=== PATIENT | male | born 1955 | race Caucasian/White ===

== ENCOUNTER → 2017-07-20 | Outpatient (CLI) | payer BC ==
[2017-07-20 12:17] LABS: BASO % 0.3 %; BASO ABS # 0.02 K/uL (0-0.2); EOS % 1.5 %; HEMATOCRIT 45.4 % (42-52); HEMOGLOBIN 16.4 g/dL (14.0-18.0); IG# 0.01 K/uL (0.00-0.02); LYMPH % 38.7 %; LYMPH ABS # 2.56 K/uL (1.2-3.4); MEAN CELL VOLUME 98.7 fL (80-100); MEAN CORPUSCULAR HEMOGLOBIN 35.7 pg (25-34); MEAN CORPUSCULAR HGB CONC 36.1 g/dl (32-36); MEAN PLATELET VOLUME 12.2 fL (7.4-10.4); MONO % 7.3 %; MONO ABS # 0.48 K/uL (0.11-0.59); NEUT ABS # 3.45 K/uL (1.4-6.5); PLATELET COUNT 181 K/uL (130-400); RED CELL DISTRIBUTION WIDTH CV 12.3 % (11.5-14.5); WHITE BLOOD COUNT 6.62 K/uL (4.8-10.8)
[2017-07-20 13:58] LABS: ALT/SGPT 52 U/L (12-78); BLOOD UREA NITROGEN 20 mg/dl (7-18); CARBON DIOXIDE 29 mmol/L (21-32); CHOLESTEROL 164 mg/dl (0-200); CREATININE 0.96 mg/dl (0.60-1.40); GLUCOSE 97 mg/dl (70-99); POTASSIUM 3.9 mmol/L (3.5-5.1); SODIUM 138 mmol/L (136-145)
[2017-07-20 14:00] LABS: ALKALINE PHOSPHATASE 49 U/L (45-117); AST/SGOT 30 U/L (15-37); LDL CHOLESTEROL CALCULATED 91 mg/dl
== END | disposition home or self-care (01) ==
LOC: C.LABMFLN 08:53
PROVIDERS: ATTEND Family Medicine
DX: Z00.00 Encounter for general adult medical examination without abnormal findings (principal)

== ENCOUNTER → 2017-12-12 | Outpatient (CLI) | payer BC ==
[2017-12-12 14:02] LABS: ALBUMIN 4.3 gm/dl (3.4-5.0); ALKALINE PHOSPHATASE 49 U/L (45-117); ALT/SGPT 47 U/L (12-78); AST/SGOT 30 U/L (15-37); BLOOD UREA NITROGEN 20 mg/dl (7-18); CALCIUM 9.3 mg/dl (8.5-10.1); CARBON DIOXIDE 26 mmol/L (21-32); CREATININE 1.01 mg/dl (0.60-1.40); GLUCOSE 106 mg/dl (70-99); POTASSIUM 3.9 mmol/L (3.5-5.1); SODIUM 139 mmol/L (136-145); TOTAL PROTEIN 7.1 gm/dl (6.4-8.2)
== END | disposition home or self-care (01) ==
LOC: C.LABMFLN 09:56
PROVIDERS: ATTEND Family Medicine
DX: R79.89 Other specified abnormal findings of blood chemistry (principal)

== ENCOUNTER 2024-03-19 10:11 | Observation (INO) ==
--- NOTE | 2024-02-21 09:39 | PAT Medication Instructions ---
Medication Instructions Date of Service February 21, 2024 Home Medications Medication Instructions Recorded albuterol sulfate 90 mcg/actuation 2 puff inhalation Q6H PRN 06/21/22 aerosol inhaler bronchospasm #18 grams fluticasone propionate 50 2 spray intranasal DAILY PRN 10/12/22 mcg/actuation nasal allergy symptoms #17 mL spray,suspension ipratropium bromide 21 mcg (0.03 2 spray intranasal BID #30 mL 04/25/ %) nasal spray omega 4-yin-aqd-fish oil 1,200 mg (144 mg-216 mg) capsule (Fish Oil) 1 cap PO BID albuterol sulfate 90 mcg/actuation aerosol inhaler 2 puff inhalation Q6H PRN fluticasone propionate 50 mcg/actuation nasal spray,suspension 2 spray intranasal DAILY PRN ipratropium bromide 21 mcg (0.03 %) nasal spray 2 spray intranasal BID amlodipine 10 mg tablet 10 mg PO HS aspirin 81 mg chewable tablet 1 tab PO QAM finasteride 5 mg tablet (Proscar) 5 mg PO HS losartan 100 mg-hydrochlorothiazide 12.5 mg tablet 1 tab PO QAM metoprolol succinate 50 mg tablet,extended release 24 hr 50 mg PO QAM simvastatin 20 mg tablet 20 mg PO HS Amino Synergy 1 dose PO UD Continue as directed fluticasone propionate 50 mcg/actuation nasal spray,suspension 2 spray intranasal DAILY PRN(if needed) Amino Synergy 1 dose PO UD ASK your prescriber and surgeon aspirin 81 mg chewable tablet 1 tab PO QAM STOP taking 2 weeks before surgery (or as soon as possible if surgery is within 2 weeks) omega 1-lym-ftt-fish oil 1,200 mg (144 mg-216 mg) capsule (Fish Oil) 1 cap PO BID DO NOT take the morning of surgery losartan 100 mg-hydrochlorothiazide 12.5 mg tablet 1 tab PO QAM Take morning of surgery With a small sip of water, OTHERWISE NOTHING TO EAT OR DRINK AFTER MIDNIGHT: albuterol sulfate 90 mcg/actuation aerosol inhaler 2 puff inhalation Q6H PRN(use if needed; please bring with you to hospital day of surgery if possible) ipratropium bromide 21 mcg (0.03 %) nasal spray 2 spray intranasal BID metoprolol succinate 50 mg tablet,extended release 24 hr 50 mg PO QAM Take evening before surgery albuterol sulfate 90 mcg/actuation aerosol inhaler 2 puff inhalation Q6H PRN(if needed) ipratropium bromide 21 mcg (0.03 %) nasal spray 2 spray intranasal BID amlodipine 10 mg tablet 10 mg PO HS finasteride 5 mg tablet (Proscar) 5 mg PO HS simvastatin 20 mg tablet 20 mg PO HS Other Notes If you have any questions please call us at [phone] or [phone] or [phone] or [phone]
--- NOTE | 2024-03-05 08:45 | Anesthesiology Consultation ---
Date of Service March 05, 2024 Assessment & Plan (1) Encounter for pre-operative examination: Plan Patient seen by cardiology 03/09/24= Patient seen for preop. Patient's chest discomfort is atypical and does not appear CV in nature. Only occurs when he walks after eating a large meal- when it occurrs he is able to walk at the same pace and discomfort will resolve on his own after about 10 minutes. Appears more GI in nature. "Otherwise, he has no exertional chest discomfort. He appears euvolemic on exam with no evidence of CHF. He has no evidence of arrhythmia or significant valvular abnormality. He is therefore at an acceptable risk to proceed with upcoming surgery without any additional cardiovascular testing or intervention." Patient acceptable risk for surgery Chart Review Chart Review: Acceptable Risk for Surgery (pending cardio clearance ) and Patient seen in Pre Admission Testing - Discussed chest discomfort with Dr. Carver- due to chest discomfort being associated with activity- recommends cardio evaluation prior to surgery. [facility] 03/09/24 at 1345 - Patient is NOT an ideal OPJ (currently 23 hour obs) Per PAT appt on 03/05/24, no recent illness/disease exposures, illness related symptoms, or recent illness/disease positive tests. Will leave to surgeon's discretion if preop Covid testing needed Teaching & Discussion Pre-Anesthesia Teaching/Discussion Notes: Instructed NPO after midnight before surgery,except medications with 15 cc of water. Medication instructions provided according to the PAT guidelines. History Surgery Operation Date: 03/19/24 07:00 Proposed Procedures p Left Total Knee Arthroplasty - Santi Rodriguez MD Height/Weight Height: 5 ft 11.5 in Weight: 97.522 kg Allergies Allergy/AdvReac Type Severity Reaction Status Date / Time No Known Allergies Allergy Verified 03/09/24 13:44 Medications Home Medications Medication Instructions Recorded Confirmed Last Taken omega 8-dpg-mll-fish oil 1,200 mg 1 cap PO BID 08/14/20 03/09/24 11/07/23 (144 mg-216 mg) capsule (Fish Oil) albuterol sulfate 90 mcg/actuation 2 puff inhalation Q6H PRN 06/21/22 03/09/24 Unknown aerosol inhaler bronchospasm #18 grams fluticasone propionate 50 2 spray intranasal DAILY PRN 10/12/22 03/09/24 11/03/23 mcg/actuation nasal allergy symptoms #17 mL spray,suspension ipratropium bromide 21 mcg (0.03 2 spray intranasal BID #30 mL 04/25/23 03/09/24 Unknown %) nasal spray amlodipine 10 mg tablet 10 mg PO HS 10/06/23 03/09/24 11/07/23 aspirin 81 mg chewable tablet 1 tab PO QAM 10/06/23 03/09/24 11/07/23 finasteride 5 mg tablet (Proscar) 5 mg PO 10/06/23 03/09/24 11/03/23 losartan 100 1 tab PO QAM 10/06/23 03/09/24 11/07/23 mg-hydrochlorothiazide 12.5 mg tablet metoprolol succinate 50 mg 50 mg PO QA 10/06/23 03/09/24 11/08/23 05:30 tablet,extended release 24 hr simvastatin 20 mg tablet 20 mg PO 10/06/23 03/09/24 11/07/23 Amino Synergy 1 dose PO UD 02/21/24 03/09/24 Unknown Past Medical History Medical History (Updated 03/05/24 @ 12:07 by Karina Liao PA-C) BPH (benign prostatic hyperplasia) Cervical radiculopathy "more numbness than pain" to right upper extremity; ROM is "fine" Elevated blood sugar Hgb A1C 5.6 on 03/05/24 History of dyspnea ~2018, had many pulmonary tests at [facility]-"no specific findings, but had some weight gain from shelter feels it may have been from that'; d/c from [facility] pulmonology>"still has inh prn, but very rare use" - Breathing stable per patient - only mild SOB with big hills during walks - chronic/stable Hyperlipidemia Hypertension Osteoarthritis generalized Otosclerosis following with a specialist at [place], Dr. Arroyo s/p left stapedotomy 01/25/24- no current issues as of PAT appt 03/05/24 PONV (postoperative nausea and vomiting) following his initial acl reconstruction many years ago, had scop patch with ear surgery 01/2024 Post-nasal drip Chronic - usually in spring and fall seasons - improved with nasal spray Slow to wake up after anesthesia Exercise / Class Metabolic Activity II 4-5 Yardwork/Stairs/Walk up hill (one flight of stairs - no chest pain or SOB ) Past Family History Family History Brother Amyotrophic lateral sclerosis Sister Diabetes Bladder cancer Father Emphysema of lung Hypertension Mother Myocardial infarction Hypertension Daughter Hypertension Other No family history of adverse response to anesthesia Denies family history of Ovarian cancer Prostate cancer Colorectal cancer Past Surgical History Surgical History H/O knee surgery "meniscus clean-up" H/O stapedectomy (12/25/23) Left ear ([facility]) H/O wrist surgery left History of hernia repair Hx of anterior cruciate ligament tear reconstruction Hx of cataract extraction bilateral Hx of colonoscopy Hx of repair of right rotator cuff spring 2022 Past Anesthesia History No Hx of Anesthesia Complications (with exception to PONV; slow to wake- groggy post op- no reintubation or ICU stay ) and No Family Hx of Anesthesia Complications History of PONV No Hx of Motion Sickness and History of PONV Social History Smoking Status: Never smoker Do You Dip or Chew Tobacco: No Hx Alcohol Use: Yes Alcohol type: hard liquor alcohol intake frequency: a few times a week Hx Substance Use: No substance use type: does not use Review of Systems - Chest discomfort- x years- occurs only after eating a big meal while going on a walk- begins at start of walk and subsides after a few minutes- walks for approximately an hour- around 3 miles- 2-3 days week. No chest discomfort if he does not eat prior to walk. Chest discomfort located to middle of chest - lasts minutes- no radiation - no nausea or SOB - Occ heartburn - relieved with Lili-seltzer Patient denies shortness of breath, dyspnea on exertion, cough, wheezing, palpitations. No hx of seizures, stroke, AK, apnea/snoring. No hx of blood clots or blood transfusions Physical Exam Vital Signs VITALS BP 154/82 (manually) P 50 (chronic bradycardia per patient- no dizziness or syncope) TEMP 97.7 SP02 96% RESP 16 Constitutional no acute distress ENMT Mouth: no TMJ clicking Thyromental Distance: > or= 3.5 Finger Breadths (3.5) Mallampati Class: I Removable right side bridge Neck neck extension not limited Respiratory normal respiratory effort; no respiratory distress Auscultation: lungs clear to auscultation bilaterally; no wheezes Cardiovascular Rate/Rhythm: regular rate and regular rhythm Heart Sounds: no murmur Vessels: no carotid bruit Musculoskeletal Spine: no pain with cervical ROM Extremities: extremities normal to inspection Psychiatric Orientation: alert Lab Results Anesthesia Preop Results Results Anesthesia Widget: WBC 6.04 K/ul (4.8-10.8) 03/05/24 Hgb 15.9 g/dl (14.0-18.0) 03/05/24 Hct 44.9 % (42.0-52.0) 03/05/24 Plt 192 K/uL (130-400) 03/05/24 Na 140 mmol/L (136-145) 03/05/24 K 4.0 mmol/L (3.5-5.1) 03/05/24 Cl 103 mmol/L (98-107) 03/05/24 CO2 29 mmol/L (21-32) 03/05/24 BUN 22 mg/dl (6-23) 03/05/24 Creat 0.70 mg/dl (0.6-1.4) 03/05/24 Glucose Level 113 mg/dl (70-99(Fasting)) H 03/05/24 PT 10.6 Seconds (9.0-12.0) 03/05/24 PTT 27 Seconds (21-31) 03/05/24 INR 1.0 (0.9-1.1) 03/05/24 HA1c 5.6 % (4.5-5.6) 03/05/24 Blood Type A Positive 03/05/24 Antibody Screen NEGATIVE 03/05/24 Testing Electrocardiogram Date: 03/05/24 SB at 49bpm Otherwise normal EKG per cardio Chest X-Ray Date: 10/10/23 Findings: + NAD
--- NOTE | 2024-03-13 19:32 | History & Physical Report ---
Date of Service March 13, 2024 Assessment & Plan (1) Left knee DJD: 68-year-old male status post left hamstring ACL reconstruction and then subsequent knee arthroscopy with advanced left knee tricompartment DJD. Failed conservative treatment. He like to have his knee fixed. Plan: We are going to take him to the operating room and do a left total knee replacement. Will remove any hardware needed at that time. There is some benefits of total knee replacement were explained and he understands. Will krissy hernandes put some vancomycin in the cementto add to previous surgeries. Will need universal hardware removal tray. Will plan on using aspirin for DVT prophylaxis. (2) Hyperlipidemia: (3) HTN (hypertension): (4) BPH (benign prostatic hyperplasia): History of Present Illness Chief Complaint: . Left knee pain and discomfort Primary Care Provider: Vasu Duckworth DO . The patient is a 68-year-old gentleman who presents now for surgical treatment of his left knee. Got a long history of left knee problems and had his ACL reconstructed with hamstring autograft and medial and lateral meniscal repairs by Dr. Humphreys back in 1998. He did okay for a while but developed increased pain discomfort and had his knee scope and a "cleanup procedure" in 2010. Since then his knees continue to bother him. He has been through extensive treatment and finds very just temporary relief, specifically injections. Pains become more disabling. Knee is gotten stiffer. He like to have his knee fixed. Allergies Allergy/AdvReac Type Severity Reaction Status Date / Time No Known Allergies Allergy Verified 03/09/24 13:44 Home Medications Medication Instructions Recorded Confirmed Type omega 5-zsw-fdj-fish oil 1,200 mg 1 cap PO BID 08/14/20 03/09/24 History (144 mg-216 mg) capsule (Fish Oil) albuterol sulfate 90 mcg/actuation 2 puff inhalation Q6H PRN 06/21/22 03/09/24 Rx aerosol inhaler bronchospasm #18 grams fluticasone propionate 50 2 spray intranasal DAILY PRN 10/12/22 03/09/24 Rx mcg/actuation nasal allergy symptoms #17 mL spray,suspension ipratropium bromide 21 mcg (0.03 2 spray intranasal BID #30 mL 04/25/23 03/09/24 Rx %) nasal spray amlodipine 10 mg tablet 10 mg PO HS 10/06/23 03/09/24 History aspirin 81 mg chewable tablet 1 tab PO QAM 10/06/23 03/09/24 History finasteride 5 mg tablet (Proscar) 5 mg PO HS 10/06/23 03/09/24 History losartan 100 1 tab PO QAM 10/06/23 03/09/24 History mg-hydrochlorothiazide 12.5 mg tablet metoprolol succinate 50 mg 50 mg PO QAM 10/06/23 03/09/24 History tablet,extended release 24 hr simvastatin 20 mg tablet 20 mg PO HS 10/06/23 03/09/24 History Amino Synergy 1 dose PO UD 02/21/24 03/09/24 History Past Med/Surg History Problem List Encounter for pre-operative examination Left knee pain Cervical radiculopathy S/P right rotator cuff repair Right shoulder pain Elevated MCV Osteoarthritis of right wrist Rhinitis due food Degenerative joint disease of knee Motion sickness (Chronic) Hyperlipidemia (Chronic) HTN (hypertension) (Chronic) BPH (benign prostatic hyperplasia) (Chronic) Hx of colonic polyp Medical History Osteoarthritis generalized Post-nasal drip Chronic - usually in spring and fall seasons - improved with nasal spray Elevated blood sugar Hgb A1C 5.6 on 03/05/24 Slow to wake up after anesthesia PONV (postoperative nausea and vomiting) following his initial acl reconstruction many years ago, had scop patch with ear surgery 01/2024 Otosclerosis following with a specialist at [place], Dr. Arroyo s/p left stapedotomy 01/25/24- no current issues as of PAT appt 03/05/24 Hyperlipidemia Hypertension History of dyspnea ~2018, had many pulmonary tests at [facility]-"no specific findings, but had some weight gain from skilled nursing feels it may have been from that'; d/c from [facility] pulmonology>"still has inh prn, but very rare use" - Breathing stable per patient - only mild SOB with big hills during walks - chronic/stable Cervical radiculopathy "more numbness than pain" to right upper extremity; ROM is "fine" BPH (benign prostatic hyperplasia) Surgical History H/O stapedectomy (12/25/23) Left ear ([facility]) Hx of cataract extraction bilateral Hx of colonoscopy Hx of repair of right rotator cuff spring 2022 Hx of anterior cruciate ligament tear reconstruction H/O wrist surgery left H/O knee surgery "meniscus clean-up" History of hernia repair Family History Brother Amyotrophic lateral sclerosis Sister Diabetes Bladder cancer Father Emphysema of lung Hypertension Mother Myocardial infarction Hypertension Daughter Hypertension Other No family history of adverse response to anesthesia Denies family history of Ovarian cancer Prostate cancer Colorectal cancer Social History Smoking Status: Never smoker Second Hand Exposure: Yes (hx growing up); Do You Dip or Chew Tobacco: No; Hx Alcohol Use: Yes Alcohol type: hard liquor Alcohol type Comment: [place] Alcohol Intake Frequency: 4 or More x per/Week Hx Substance Use: No Preferred Language: Frisian Communication Ability: Effective Visual Impairment: Partially Limited Hearing Ability: Normal Slash Trimmer Required: No Beliefs That Will Affect Care: None marital status: Current Living Situation: Spouse and Family current occupational status: retired current occupation: Pharmacist How many Children do You have: 2 Feels Safe at Home: Yes Childhood Exposure to Second-Hand Smoke: Yes caffeine: Yes (coffee) Dental Care, Regularly: Yes Physical Activity Frequency: 3-4 Times per Week Seatbelt Use: always Sunscreen Use: Yes (sometimes) Do you think of yourself as: straight/heterosexual Gender Identity: Male Assistive Devices: Glasses Review of Systems All systems reviewed & are unremarkable except as noted in HPI & below. Physical Exam . Physical examination is a pleasant middle-age male. Looks in pretty good health. He ambulates independently. Is got varus alignment to his knee. He is got multiple well-healed incision. Small knee effusion. Range of motion is about 5-1 25. He is got a soft endpoint to his [place]. No obvious pigment. No varus or valgus instability. No particular pain with hip motion. Constitutional WD/WN, vitals as above Respiratory normal respiratory effort, lungs clear to auscultation Cardiovascular RRR, no murmur, no edema Gastrointestinal (Abdomen) normal bowel sounds, soft, nontender, no hepatosplenomegaly Results & Data Results & Data Laboratory Results . Diagnostic Findings . X-rays of the left knee reviewed. Shows advanced left knee tricompartment DJD. He is got a complete loss of the medial joint space. A little bit of tibiofemoral subluxation. He is got osteophytes in all 3 compartments. There is evidence of hardware in place specifically a bone bolt screw. PG Care Time/CCT Total # of Minutes Spent Total Time Spent with Patient: Total time spent is greater than 50% in coordination of care (as documented) at patient's floor/unit and/or counseling patient: Coding Level of Care Code None Diagnoses Left knee DJD M17.12 Hyperlipidemia E78.5 HTN (hypertension) I10 BPH (benign prostatic hyperplasia) N40.0
[~2024-03-19 10:11] MED LIST: BUPIVACAINE 0.25% PF 30 ML VIAL ONE; BUPIVACAINE 0.5 % 5 MG/1 ML PF 10ML VIAL ONE
--- NOTE | 2024-03-19 10:31 | History & Physical Bridge Note ---
Date of Service March 19, 2024 History & Physical Bridge Note I have examined the patient, reviewed the History & Physical and in the interval since the performance of the History & Physical I have noted the following changes of clinical significance: no changes noted
[2024-03-19] MEDS: CeleBREX 200 MG CAP PO SCH (10:55)
[2024-03-19] MEDS: FAMOTIDINE 20 MG TAB PO SCH (10:55)
[2024-03-19] MEDS: ACETAMINOPHEN 500 MG TAB PO SCH ×2 (10:55→21:04)
[2024-03-19] MEDS: LR 60ML/HR IV SCH (10:55)
[2024-03-19] MEDS: Scopolamine 1 MG TDSY TD SCH (10:56)
[2024-03-19] MEDS: METOCLOPRAMIDE HCL 10 MG TABLET PO SCH (10:56)
[2024-03-19] MEDS: dexAMETHasone**PF** 10 MG/ML VIAL IV SCH (11:09)
[2024-03-19] MEDS: LR 15ML/HR IV SCH (11:09)
[2024-03-19] MEDS ORDERED: MIDAZOLAM HCL 1 MG/ML 2ML VIAL ONE (11:32)
[2024-03-19] MEDS ORDERED: fentaNYL citrate PF 100 MCG/2 ML VIAL ONE (11:33)
[2024-03-19] MEDS ORDERED: fentaNYL citrate PF 100 MCG/2 ML VIAL IV PRN (11:47)
[2024-03-19] MEDS ORDERED: ePHEDrine sulfate 50 MG/ML AMP IV PRN (11:47)
[2024-03-19] MEDS ORDERED: ATROPINE SULFATE 0.1 MG/ML 10ML SYR IV PRN (11:47)
[2024-03-19] MEDS ORDERED: ONDANSETRON INJ 2 MG/ML 2 ML VIAL IV PRN ×2 (11:47→16:57)
[2024-03-19] MEDS: ceFAZolin 2000MG 2,000 MG/15 ML SYR IV SCH ×2 (12:56→21:32)
[2024-03-19] MEDS ORDERED: KETAMINE HCL 10MG/ML SYR ONE (13:05)
[2024-03-19] MEDS: ORTHO JOINT ANESTHETIC ONE (13:36)
[2024-03-19] MEDS: ROPIV 0.5% 246mg, Ketorolac 30mg, EPINEPHrine 0.5mg in NSS INFIL SCH (13:46)
[2024-03-19] MEDS: VANCOMYCIN HCL 1000MG/20ML VIAL ONE (13:46)
[2024-03-19] MEDS: TRANEXAMIC ACID 1,000 MG **IV Intra-op IV SCH (14:01)
[2024-03-19] MEDS ORDERED: PROPOFOL IV EMULSION 10 MG/ML 20 ML VIAL IV ONE (14:25)
[2024-03-19] MEDS ORDERED: ONDANSETRON INJ 2 MG/ML 2 ML VIAL ONE (14:25)
--- NOTE | 2024-03-19 14:49 | Operative Report ---
PG Post Operative Report Pre & Post Diagnosis Operation Date: 03/19/24 12:30 Pre-Op Diagnosis: Left Knee Degenerative Joint Disease Post-Op Diagnosis: Left Knee Degenerative Joint Disease I identified the patient and participated in the time-out.: Yes Procedure Operation Date: 03/19/24 12:30 Actual Procedures p Left Total Knee Arthroplasty(Left) - Santi Rodriguez MD Surgeon Santi Rodriguez MD Alarm Mechanism Adjuster Jase Millan PA-C Estimated Blood Loss 50 Findings Consistent with Post-Op Diagnosis Operative findings were advanced left knee tricompartment DJD. He had a chronic ACL deficiency. He had extensive grade 4 [id number] disease of the medial compartment. Moderate-sized joint effusion. Specimens Left knee sent for pathology. Anesthesia Type Spinal MAC Complications none Disposition Accompanied Patient To Recovery: No Indications Patient is a 68-year-old gentleman whose had a long history of left knee problems over the years. He initially tore his ACL many years ago had an ACL hamstring reconstruction approximately 25 years ago. He had a subsequent knee scope and cleanout procedure about 13 years ago. Over the past 10 years he developed increased pain discomfort in his knee. He failed all conservative measures. X-rays reveal advanced left knee arthritis. He elected proceed with total knee arthroplasty. Description of Procedure Operative implants consist of: 1. Biomet Vanguard size 70 left posterior stabilized femoral component. 2. Biomet size 79 tibial tray. 3. 12 mm posterior stabilized polyethylene insert. 4. 31 x 8 all poly patella. The patient was taken the operating, identified, placed on the operating table in the supine position. All conductors were appropriately padded. IV antibiotics fibra anesthesia team. A spinal anesthetic and adductor canal block had been Weida in the holding area. A left thigh turn was then placed. The left lower extremities then prepped and draped in usual sterile fashion. The left leg was elevated exsanguinated with use of an Esmarch and a turn was placed at 300 mmHg. An anterior approach to the left knee was then performed to a longitudinal incision centered over the patella. He did have a previous medial incision but it was too far medial to a utilized. It is been 25 years out from surgery and felt to be acceptable to make a more lateral incision. Sharp dissection was got through subcutaneous tissue down the extensor mechanism. A medial parapatellar arthrotomy incision was made. Some subperiosteal dissection was carried out medially. The fat pad was dissected from Neath patella tendon. Lateral patellofemoral ligament was released. Patella subluxated laterally and the knee was flexed. We did look for the tibial screw and there was no signs of Actinac was not visible. We could see the tunnel where there was a previous graft but once again the hardware was not visible. The external tibial alignment jig was then placed on the anterior face of the tibia and adjusted 14 mm medially. Proximal tibial cut was made to move millimeter bone from the medial side. Some osteophytes taken off medially. The tibia was sized to a size 79. Attention drawn the femur. The distal femur was entered with a sharp drill. Intramedullary canal was suction. A left 6 degree valgus cutting guide was placed but the distal femoral cutting block was pinned in place. This femoral cut was made to take an additional 3 mm of bone off distal femur. Femur was then sized to a size 70. The AP cutting block was pinned parallel to the epicondylar axis which was 5 degrees of external rotation. The anterior cut, anterior chamfer, posterior cut, posterior chamfer cuts were made. The box cutting guide was placed and adjusted slightly laterally. The box cut was made. The knee was flexed. The remnants of the medial and lateral menisci were excised. The osteophytes taken off the posterior aspect the femur. A trial femoral component was placed. I then pinned the tibia in Emilie external rotation. We very carefully then used the drill and stem punch to create the defect in the proximal for the tibia component. We took great caution doing this as we knew there was a screw in the tibia. With the initial reamer we did seem to contact the hardware but was just at the very end of the reaming. We then punched and were able to get the punch the whole way down. I then took the definitive implant and trialed it and it fit within the punch hole so we did not remove the hardware as it did not appear to be in the path of the implant itself. We then trialed the knee and the 12 mm insert fit most appropriately. Attention drawn the patella. The patella was cleaned of all soft tissues. Patella thickness measured 26 mm in thickness was cut down to 14. Was sized to a size 31 patella. The lug holes were drilled for 31 patella. The lateral osteophytes removed. Patella button was placed. Knee was taken through range of motion patella tracked nicely with no thumbs test. Attention drawn to place the permanent components. Nupathe all trial components were removed. Bone plug was placed in distal femur limit blood loss. Double batch Palacos G cement was mixed. I did add an additional gram of vancomycin due to this history of multiple surgeries on this knee. Biomet Vanguard size 70 left posterior stabilized femoral component, size 79 tibial tray, a 12 mm posterior stabilized polyethylene insert, and a 31 x 8 all poly patella then cemented in place. The knee was brought out into full extension till cement hardened. Final cement check was then performed. The pericapsular tissues were injected with total of 100 cc of Ortho mix. Patient did receive 1 g tranexamic acid. The tourniquet was then let down for final tourniquet time of 62 minutes. Hemostasis reduce electrocautery. The extensor Metros then closed with combination 1 PDS suture #1 Vicryl suture in a [id number] fashion. Extensor Meclomen checked found to be intact. Subcutaneous tissues were then closed with 2 Dexon suture in a buried interrupted fashion the skin was closed skin madelyn. Leg was then cleaned and dried and a sterile dressing was Xeroform, 4 fours, sterile ABD pad, sterile cast padding, Lai bandage were applied. Patient then transferred to the recovery in stable condition. Patient tolerated procedure well and there were no complications. Jase Millan, my physician care management assistant, was present for the entire procedure. His assistance was essential and required for appropriate patient positioning, prepping and draping, surgical exposure, performing the technical details of the operation, placement the implants, closure of the wound, and placement of the sterile bandage. I attest to the content of the Intraoperative Record and any orders documented therein. Any exceptions are noted below.
--- NOTE | 2024-03-19 14:50 | Anesthesiology Progress Note ---
Date of Service March 19, 2024 Anesthesia Post Procedure Vital Signs Vital Signs: Temp Pulse Resp BP Pulse Ox O2 Del Method 03/19/24 10:43 36.4 C L 60 20 178/82 H 98 Room Air Pain Intensity Left Knee: Pain Intensity: 0 Transfer of Care Handoff Completed per policy Notes Mental Status: alert / awake / arousable and participated in evaluation Patient Amnestic to Procedure: Yes Nausea / Vomiting: adequately controlled Pain: adequately controlled Airway Patency, RR, SpO2: stable & adequate BP & HR: stable & adequate Hydration State: stable & adequate Neuraxial Anesthesia: was administered and sensory block is resolving Anesthetic Complications: no major complications apparent and Pt Satisfied with anesthetic care
[2024-03-19] MEDS ORDERED: FLUTICASONE PROPIONATE NA SPR 16 GM BTL NAE PRN (16:57)
[2024-03-19] MEDS ORDERED: METOCLOPRAMIDE HCL INJ 5 MG/ML 2 ML VIAL IV PRN (16:57)
[2024-03-19] MEDS ORDERED: MAGNESIUM HYDROXIDE SUSP 30 ML UDC PO PRN (16:57)
[2024-03-19] MEDS ORDERED: [UNRECOGNIZED DRUG - OTHER] PO SCH (16:57)
[2024-03-19] MEDS ORDERED: ALUMINUM/MAGNESIUM SUSP 30 ML UDC PO PRN (16:57)
[2024-03-19] MEDS ORDERED: ALBUTEROL HFA 8 GM INHALER INH PRN (16:57)
[2024-03-19] MEDS ORDERED: bisacodyL 10 MG SUPP PR PRN (16:57)
[2024-03-19] MEDS ORDERED: HYDROmorphone INJ 0.5 MG/0.5 ML SYR IV PRN (16:57)
[2024-03-19] MEDS ORDERED: oxyCODONE HCL IR 5 MG TAB (IMMEDIATE RELEASE) PO PRN (16:57)
[2024-03-19] MEDS ORDERED: NALOXONE HCL 0.4 MG/1 ML VIAL/CARP IV PRN (16:57)
[2024-03-19] MEDS: Scopolamine CHECK PATCH PLACEMENT SCH (17:25)
[2024-03-19] MEDS: KETOROLAC TROMETHAMINE 15 MG/ML VIAL IV SCH (17:25)
[2024-03-19 18:00] VITALS: RESP 18
--- NOTE | 2024-03-19 18:29 | XRay Report ---
XR knee LT 1 or 2V routine CLINICAL HISTORY: Surgical Post Op TECHNIQUE: 2 views of the right knee were obtained. Comparison: Comparison is made to knee radiographs 11/28/2023 FINDINGS: Patient is status post total knee arthroplasty with expected postsurgical changes including soft tiss ue swelling and subcutaneous emphysema. No periarticular lucency or hardware fracture is seen. IMPRESSION: Expected postoperative appearance status post placement of total knee arthroplasty. ACT 112: Negative or not required by law. Electronically signed by: Mor Torres M.D. 03/19/2024 6:27 PM
[2024-03-19] MEDS: ASCORBIC ACID 500 MG TAB PO SCH (18:38)
[2024-03-19] MEDS ORDERED: SENNA 8.6 MG TAB PO SCH (21:00)
[2024-03-19] MEDS: TRANEXAMIC ACID / 0.7% NACL 1,000 MG/100 ML BAG IV SCH (21:04)
[2024-03-19] MEDS: DOCUSATE SODIUM 100 MG CAP PO SCH (21:05)
[2024-03-19] MEDS: SENNA 8.6 MG TAB PO SCH (21:05)
[2024-03-19] MEDS: SIMVASTATIN 20 MG TAB PO SCH (21:06)
[2024-03-19] MEDS: IPRATROPIUM BROMIDE NASAL SPRAY 0.06% 15ML NAE SCH (21:06)
[2024-03-19] MEDS: ASPIRIN 81 MG ECTAB PO SCH (21:07)
[2024-03-19] MEDS: amLODIPine BESYLATE 5 MG TAB PO SCH (21:07)
[2024-03-19] MEDS: OMEGA-3 (PURIFIED FISH OIL) 1 GM CAP PO SCH (21:07)
[2024-03-19] MEDS: FINASTERIDE 5 MG TAB PO SCH (21:07)
[2024-03-20 03:14] VITALS: TEMP 98.2; O2SAT 93
[2024-03-20 07:10] LABS: Hematocrit (blood only) 35.8 % (42.0-52.0); Hemoglobin 12.9 g/dl (14.0-18.0); Mean Corpuscular Hemoglobin 34.3 pg (25.0-34.0); Mean Corpuscular Volume 95.2 fL (80.0-100.0); Mean Platelet Volume 11.6 fL (9.4-12.4); Platelet Count 192 K/uL (130-400); RDW Standard Deviation 41.7 fL (36.4-46.3); Red Blood Count 3.76 M/uL (4.70-6.10); White Blood Count 13.02 K/ul (4.8-10.8)
[2024-03-20 07:34] LABS: BUN Creatinine Ratio 25.6 (10-20); Creatinine Clr Calc Pharmacy 93.8 ml/min; Potassium 4.3 mmol/L (3.5-5.1)
[2024-03-20 07:36] VITALS: BP 136/76; PULSE 76
[2024-03-20] MEDS: LOSARTAN POTASSIUM 50 MG TAB PO SCH (08:35)
[2024-03-20] MEDS: hydroCHLOROthiazide 25 MG TAB PO SCH (08:35)
[2024-03-20] MEDS: METOPROLOL SUCC 50MG EXT REL TAB PO SCH (08:36)
[2024-03-20] MEDS: dexAMETHasone 10 MG in SYRINGE 0 ML IV SCH (08:36)
[2024-03-20] MEDS: MULTIVITAMIN TAB PO SCH (08:36)
[2024-03-20] MEDS: TAMSULOSIN HCL 0.4 MG CAP PO SCH (08:36)
--- NOTE | 2024-03-20 09:05 | Orthopedic Progress Note ---
Date of Service March 20, 2024 Assessment & Plan (1) Status post left knee replacement: Plan: 68-year-old male postop day 1 from left knee replacement doing pretty well. Pains controlled. He is neurologically intact. Plan: 1. DVT prophylaxis including thigh-high teds, SCDs, aspirin twice a day. 2. PT/OT. He can weight-bear as tolerated. Left total knee protocol. 3. Pain control. Doing okay with current pain regimen. 4. Disposition. Plan is to discharge to home with some home health if he does okay in therapy today. Admission and Anticipated Discharge Date Admission Date: March 19, 2024 Subjective 68-year-old gentleman postop day 1 from a left knee replacement. Days doing pretty well. Had a reasonable night. Pains been controlled. No chest pain or shortness of breath. Not feeling dizzy or lightheaded. Physical Exam Physical Exam: Physical exam shows a pleasant middle-age male. He is sitting up in bed this morning looks pretty comfortable. Examination of the left leg reveals the dressing be clean dry and intact. Leg is well aligned. Can dorsiflex and plantarflex his foot appropriately. He is neurologically intact. Respiratory: normal respiratory effort, lungs clear to auscultation Cardiovascular: RRR, no murmur, no edema Gastrointestinal (Abdomen): normal bowel sounds, soft, nontender, no h epatosplenomegaly Results & Data Vital Signs (Past 12 Hours) Vital Signs Temp Pulse Resp BP Pulse Ox O2 Del Method 03/20/24 07:35 36.8 C 76 18 136/76 93 Room Air 03/20/24 03:14 36.8 C 71 18 132/72 93 Room Air 03/19/24 23:31 36.9 C 88 18 162/84 H 95 Room Air Laboratory Results Hemoglobin is 12.9. Hematocrit is 35.8. Electrolytes are stable.
== END 2024-03-20 11:01 | disposition home health service (06) ==
LOC: 3E 10:11 → ASU 10:11